=== PATIENT | female | born 1945 | race Caucasian/White ===

== ENCOUNTER 2016-11-02 18:23 | Emergency (ER) | payer MEDICARE ==
[~2016-11-02] VITALS: Ht 157.5 cm; Wt 89.5 kg
[2016-11-02 19:25] VITALS: BP 180/78; PULSE 83; RESP 20; O2SAT 100
--- NOTE | 2016-11-02 20:11 | DRSVH ---
PROCEDURE: X-RAY RIGHT HIP COMPLETE, MINIMUM TWO VIEWS ([id number]) INDICATIONS: 71 year-old female with right hip pain. TECHNIQUE: 2 views of the hip were acquired. COMPARISON: None. FINDINGS: Bones: No fractures or dislocations. No suspicious bony lesions. No hip joint degeneration. The vi sualized pelvic ring appears intact. There is lower lumbar spine disc degeneration. Soft tissues: No suspicious soft tissue calcifications or masses. IMPRESSION: No radiographic explanation for right hip pain. Dictated by: Allen Connor M.D. on 11/02/2016 at 20:08 Approved by: Allen Connor M.D. on 11/02/2016 at 20:09
[2016-11-02] MEDS ORDERED: Triamcinolone Acet 40 mg/mL 5 mL Inj IM ONE (21:45)
--- NOTE | 2016-11-02 22:10 | ED.REPORT ---
HPI-Extremity Problem Lower Date of Service Nov 02, 2016 ED Provider: Adama Tate DO Pt is a 71 year old female with a history of HTN who presents to the ED complaining of right leg pain onset 4 days ago. She c/o associated right hip pain and right knee pain, stating that the pain radiates down her hip and into her leg. She denies back pain, numbness, bowel incontinence, urinary incontinence, and any other symptoms. The pt denies back injury. Nursing Notes Stated Complaint: RIGHT HIP AND LEG PAIN Chief Complaint: Back Pain or Injury Nursing Notes Reviewed: Yes Allergies: Coded Allergies: No Known Allergies (Unverified , 11/02/16) General Time Seen by MD: 20:43 Chief Complaint Other (Right hip pain) Hx Obtained From: Patient Arrived By: Walk-in Onset Occurred: 4 days ago Symptom Duration: Since onset Location: : Hip right: Knee right: Leg right Quality: Painful Severity: Current: Moderate Severity: Maximum: Moderate Recent Healthcare: No recent doctor visit, No recent hospitalization Similar Sx Previous: No Past Medical History Past Medical History Reports: Hypertension Past Surgical History Reports: Hysterectomy Smoking History Unknown if Ever Smoker Social History Alcohol Use: Denies alcohol use Drug Use: Denies drug use Ambulatory Status Independent Review of Systems Musculoskeletal: Reports: Extremity pain, Joint pain, Denies: Back pain Neurologic: Denies: Numbness Complete sys rev & neg: except as marked. Female: Denies: Incontinence (bladder or bowel) Physical Exam Initial Vital Signs Vital Signs (First) Date Time Temp Pulse Resp B/P Pulse Ox O2 Delivery O2 Flow Rate FiO2 11/02/16 19:25 36.6 83 20 180/78 100 Room Air Initial VS: Reviewed Head / Eyes: Atraumatic, Normocephalic Neck: Supple, Full range of motion Respiratory: Breath sounds normal, Clear to auscultation, No respiratory distress Cardiovascular: Regular rate & rhythm, Heart sounds normal, Intact distal pulses Abdomen / GI: Soft, Non-tender Upper Extremities: Vascular intact, Neuro intact Skin: Warm, Dry, No cyanosis Neurologic: Alert, Oriented, Nonfocal Psychiatric: Mood/affect normal, Behavior normal Lower Extremity / Pelvis / MS: Neurologic intact, Vascular intact Negative log roll test. Tenderness over right greater trochanter. Ankle / Foot: Neurologic intact, Vascular intact General/Constitutional: Awake, Alert Interpretation & Diagnostics X-Ray Interpretation Xray Interpretation: IMPRESSION: No radiographic explanation for right hip pain. Dictated by: Allen Connor M.D. on 11/02/2016 at 20:08 Study Performed: Complete, 2 views X-Ray Ordered: Hip right Procedures HIP BURSA INJECTION: Kenalog-40 milligrams mixed with lidocaine 1%, 3 mls was injected into the greater trochanteric bursa, in the area of maximum pain. Alcohol was used for skin prep and a 25-gauge spinal needle was used for the injection. Patient tolerated the procedure well. Time: 22:46 Procedure performed by: ED physician Local Anesthesia: Lidocaine 1% Re-Eval/Medical Decision Med Decision/Clinical Course Based on her exam and the presentation of symptoms I do not suspect sciatica, but rather trochanteric bursitis. X-ray was normal and she has a negative logroll test. Her pain sounds more musculoskeletal than neurologic. I expect she will feel better within the next 24-48 hours. Source of Hx: Old records Re-Evaluation/Progress #1: Time of Eval: 20:43 Re-Evaluation/Progress Note: Informed pt of plan for treatment. Pt understands and agrees with plan for treatment. All questions addressed. Re-Evaluation/Progress #2: Time of Eval: 22:46 Re-Evaluation/Progress Note: Pt rechecked. Injected Kenalog-40 into pt's right hip with consent. Informed pt of plan for discharge. Pt understands and agrees with plan for discharge. F/U instructions and RTER warnings given. All questions addressed. Counseled Regarding: Diagnosis, Lab results, Need for follow-up, When/why to return to ED Discharge & Departure Impression: Primary Impression: Bursitis of right hip Hip bursitis location: unspecified Qualified Code: M70.71 - Other bursitis of hip, right hip Disposition: Home Discharge Condition All VS Reviewed: Yes Condition: Stable Patient Instructions: Hip Bursitis (ED) Additional Instructions: Thank you for entrusting us with your care and for your patience today. Call your primary care provider on Friday for a follow up appointment next week. Return to the Emergency Department for any new or concerning symptoms. Referrals: Anna Chao MD (PCP) Scribe Attestation Portions of this note were transcribed by Shadia Moseley. Dr. Bebeto Story personally performed the history, physical exam and medical decision-making; I reviewed and confirmed the accuracy of the information in the transcribed note. Signed by: Emma Monreal, 11/02/16. copies to: Anna Chao MD, Gary R DO Nov 02, 2016 22:10 Shadia Saunders Nov 02, 2016 22:17
== END 2016-11-02 23:23 | disposition home or self-care (01) ==
LOC: SED 18:23
DX: M70.61 Trochanteric bursitis, right hip (principal); I10 Essential (primary) hypertension
CPT/HCPCS: 20610; 73502; 99284; J3301